=== PATIENT | male | born 1955 | race Asian ===

== ENCOUNTER 2019-07-03 11:20 | Day surgery (SDC) | payer OTHER ==
[~2019-07-03] VITALS: Ht 177.8 cm; Wt 101.2 kg
[~2019-07-03 11:20] MED LIST: AMLODIPINE; BENAZEPRIL; LEVOTHYROXINE; METFORMIN
[2019-07-03 12:19] VITALS: Ht 177.8 cm; Wt 101.2 kg
[2019-07-03] MEDS ORDERED: PROPOFOL 200 MG INJ ONE (12:20)
--- NOTE | 2019-07-03 12:20 | PREAC ---
Date/Time of Note Date/Time of Note DATE: 07/03/19 TIME: 12:18 Anesthesia Eval and Record Evaluation Time Pre-Procedure Interview DATE: 07/03/19 TIME: 12:18 Age 63 Sex male NPO: 8 hrs Preoperative diagnosis SCREENING Planned procedure COLONOSCOPY Past Medical History Past Medical History: Includes Cardio: HTN, Dyslipidemia Endo: Diabetes, Hypothyroid Hepatic: Hepatitis GI: Obesity Surgery & Anesthesia Issues No known issue Meds Anticoagulation: No Beta Shanell within 24 hr: No Reason Beta Shanell not given: Pt. not on B-Shanell Meds reviewed: Yes Allergies Allergies Reviewed: Yes Labs/Studies Labs Reviewed: Reviewed by anesthesiologist test: N/A Pre-procedure Exam Airway: Adequate mouth opening, Adequate thyromental dist Mallampati: Mallampati II Teeth: Normal Lung: Normal Heart: Normal ASA Physical Status ASA physical status: 2 Emergency: None Planned Anesthetic General/MAC: MAC Pre-operative Attestations Prior to commencing anesthesia and surgery, the patient was re-evaluated, there was verification of: *The patient's identity *The results of appropriate recent lab work and preoperative vital signs *The above evaluation not changing prior to induction *Anesthetic plan, risk benefits, alternative and complications discussed with patient/family; questions answered; patient/family understands, accepts and wishes to proceed. MARVIN JUAREZ Jul 03, 2019 12:20
[2019-07-03] MEDS ORDERED: LIDOCAINE 2% (SDV) 5 ML INJ ONE (12:22)
[2019-07-03] MEDS ORDERED: PROPOFOL 40 ML ONE (12:22)
[2019-07-03 12:33] VITALS: BP 143/96; PULSE 67; RESP 23
--- NOTE | 2019-07-03 13:10 | PAC ---
Date/Time of Note Date/Time of Note DATE: 07/03/19 TIME: 13:09 Post-Anesthesia Notes Post-Anesthesia Note Last documented vital signs Vital Signs Date Temp Pulse Resp B/P (MAP) Pulse Ox O2 O2 Flow FiO2 Time Delivery Rate 07/03/19 97.9 67 23 143/96 100 Room Air 1309 (112) Activity: WNL Respiratory function: WNL Cardiovascular function: WNL Mental status: Baseline Pain reasonably controlled: Yes Hydration appropriate: Yes Nausea/Vomiting absent: Yes MARVIN JUAREZ Jul 03, 2019 13:10
[2019-07-03] MEDS ORDERED: FENTAnyl 50 MCG/ML VIAL IV PRN (13:30)
[2019-07-03] MEDS ORDERED: EPHEDrine 25 MG/5 ML SYG IV PRN (13:30)
[2019-07-03] MEDS ORDERED: ONDANSETRON 4 MG INJ IV PRN (13:30)
[2019-07-03] MEDS ORDERED: LABETALOL HCL 20MG INJ IV PRN (13:30)
[2019-07-03 13:35] VITALS: BP 136/77; RESP 15
== END 2019-07-03 16:23 | disposition home or self-care (01) ==
LOC: GIL 11:20
PROVIDERS: ATTEND Internal Medicine Gastroenterology
DX: Z12.11 Encounter for screening for malignant neoplasm of colon (principal); D12.6 Benign neoplasm of colon, unspecified; K64.8 Other hemorrhoids; I10 Essential (primary) hypertension; E03.9 Hypothyroidism, unspecified; E11.9 Type 2 diabetes mellitus without complications
CPT/HCPCS: 45380; 82962; Z7610; 88305